=== PATIENT | female | born 1970 | race Caucasian/White ===

== ENCOUNTER 2020-10-15 09:29 | Emergency (ER) | payer SELFPAY ==
[~2020-10-15] VITALS: Ht 170.2 cm; Wt 86.0 kg
[2020-10-15 09:50] VITALS: BP 114/67
[2020-10-15] MEDS ORDERED: sulfa (09:50)
[2020-10-15] MEDS ORDERED: PRED50TA PO (10:47)
--- NOTE | 2020-10-15 10:48 | PHYS DOC ---
Past History Past Medical History: Asthma Past Surgical History: , Other Alcohol Use: None General Adult EDM: Chief Complaint: ALLERGIC REACTION HPI: HPI: 50-year-old female presenting with a rash on her left upper extremity after a patch was placed on her left upper extremity. The rash is itching and without alleviating factors. It is nonradiating and mild to moderate. She has a few hives on her face as well. She denies difficulty breathing or tongue swelling. She denies nuchal rigidity. Review of systems negative for chest pain shortness of breath abdominal pain vomiting fevers chills. All other review of systems negative. ED course: 50-year-old female presenting with left upper extremity hives suggestive of an allergic reaction to the patch on her left arm. She took Benadryl at home. We will give her oral corticosteroids and have her use topical corticosteroids as needed on her arm but not her face. We will give her a note explaining that she is allergic to this arm patch. The patch is a drug test and so they will need to use urine testing instead. The patient has been examined and was not found to have an emergency medical condition. The patient was then discharged home in stable condition to follow up with their primary care physician over the next 1-2 days. They were to return if their symptoms worsened or if they were concerned for any reason. They were also instructed to return to the emergency department if they were unable to get the recommended and appropriate follow-up. [id number] discharge instructions and return precautions were given. Patient's questions were answered to their satisfaction. Patient is comfortable with plan. Allergies: Allergies: Allergies Coded Allergies Type Severity Reaction Last Updated Verified latex Allergy Unknown 10/15/20 Yes Uncoded Allergies Type Severity Reaction Last Updated Verified SULFA Allergy Unknown 10/15/20 Physical Exam: PE: Constitutional: Well developed, well nourished, no acute distress, non-toxic appearance. [] Her breathing is normal. HENT: Normocephalic, atraumatic, bilateral external ears normal, oropharynx mo ist, no oral exudates, nose normal. [] No nuchal rigidity. Eyes: PERRLA, EOMI, conjunctiva normal, no discharge. [] Neck: Normal range of motion, no tenderness, supple, no stridor. [] Cardiovascular:Heart rate regular rhythm, no murmur [] Lungs & Thorax: Bilateral breath sounds clear to auscultation [] no wheezing. Abdomen: Bowel sounds normal, soft, no tenderness, no masses, no pulsatile masses. [] Skin: Warm, dry, patient has hives of the left upper extremity and a few hives on her left cheek. No petechiae. Back: No tenderness, no CVA tenderness. [] Extremities: No tenderness, no cyanosis, no clubbing, ROM intact, no edema. [] Neurologic: Alert and oriented X 3, normal motor function, normal sensory function, no focal deficits noted. [] Psychologic: Affect normal, judgement normal, mood normal. [] Current Patient Data: Vital Signs: Vital Signs Date Time Temp Pulse Resp B/P (MAP) Pulse Ox O2 Delivery O2 Flow Rate FiO2 10/15/20 09:50 96.3 97 16 114/67 (83) 95 Room Air EKG: EKG: [] Radiology/Procedures: Radiology/Procedures: [] Heart Score: Risk Factors: Risk Factors: DM, Current or recent (<one month) smoker, HTN, HLP, family history of CAD, obesity. Risk Scores: Score 0 - 3: 2.5% MACE over next 6 weeks - Discharge Home Score 4 - 6: 20.3% MACE over next 6 weeks - Admit for Clinical Observation Score 7 - 10: 72.7% MACE over next 6 weeks - Early Invasive Strategies Course & Med Decision Making: Course & Med Decision Making Pertinent Labs and Imaging studies reviewed. (See chart for details) [] Dragon Disclaimer: Dragon Disclaimer: This electronic medical record was generated, in whole or in part, using a voice recognition dictation system. Departure Departure: Impression: Primary Impression: Allergic reaction Disposition: 01 DC HOME SELF CARE/HOMELESS Condition: STABLE Referrals: PCP,NO (PCP) Patient Instructions: Drug Allergy, [id number] Additional Instructions: EMERGENCY DEPARTMENT GENERAL DISCHARGE INSTRUCTIONS Follow-up with your primary physician in 1 to 2 days. Return to the emergency department if you have any new or concerning findings. Thank you for coming to [facility] Emergency Department (ED) today and trusting us with you care. We trust that you had a positive experience in our Emergency Department. If you wish to speak to the department management, you may call the Director at [phone]. YOUR FOLLOW UP INSTRUCTIONS ARE FOLLOWS: 1. Do you have a private Doctor? If you do not have a private doctor, please ask for a resource list of physicians or clinics that may be able to assist you with follow up care. 2. If a lab test or culture has been done and does not come back immediately, your results will be reviewed and you will be notified if you need a change in treatment. ADDITIONAL INSTRUCTIONS AND INFORMATION: 1. Your care today has been supervised by a physician who is specially trained in emergency care. Many problems require more than one evaluation for a complete diagnosis and treatment. We recommend that you schedule your follow up appointment as recommended to ensure complete treatment of you illness or injury. If you are unable to obtain follow up care and continue to have a problem, or if your condition worsens, we recommend that you return to the ED. 2. We are not able to safely determine your condition over the phone nor are we able to give sound medical advice over the phone. For these safety reasons, if you call for medical advice we will ask you to come to the ED for further evaluation. 3. If you have any questions regarding these discharge instructions please call the ED at [phone]. SAFETY INFORMATION: In the interest of safety, wellness, and injury prevention; we encourage you to wear your sealbelt, if you smoke; quite smoking, and we encourage family to use a protective helmet for bicycling and other sporting events that present an increased risk for head injury. IF YOUR SYMPTOMS WORSEN OR NEW SYMPTOMS DEVELOP, OR YOU HAVE CONCERNS ABOUT YOUR CONDITION; OR IF YOUR CONDITION WORSENS WHILE YOU ARE WAITING FOR YOUR FOLLOW UP APPOINTMENT; EITHER CONTACT YOUR PRIMARY CARE DOCTOR, THE PHYSICIAN WHOSE NAME AND NUMBER YOU WERE GIVEN, OR RETURN TO THE ED IMMEDIATELY. This condition should be evaluated by your primary care physician and any necessary consulting services for continued management within a few days (1-2) after discharge. Return to the emergency department if you have any new or concerning symptoms including but not limited to fever, chills, nausea, vomiting, intractable pain, any new rashes, chest pain, shortness of breath, uncontrolled bleeding, difficulty breathing, and/or vision loss. Scripts Prednisone (PREDNISONE) 50 Mg Tablet 1 TAB PO DAILY for allergic reaction, #5 TAB You will starting your next dose tomorrow. Prov: ALEE WALLACE MD 10/15/20 ALEE WALLACE MD Oct 15, 2020 10:47
== END 2020-10-15 10:58 | disposition home or self-care (01) ==
LOC: ER 09:29
DX: T78.40XA Allergy, unspecified, initial encounter (principal); L50.9 Urticaria, unspecified; J45.909 Unspecified asthma, uncomplicated; Z91.040 Latex allergy status; X58.XXXA Exposure to other specified factors, initial encounter
CPT/HCPCS: 99283

== ENCOUNTER 2020-11-29 22:23 | Emergency (ER) | payer SELFPAY ==
[~2020-11-29] VITALS: Ht 170.2 cm; Wt 94.3 kg
[~2020-11-29 22:23] MED LIST: PRED50TA PO; sulfa
--- NOTE | 2020-11-29 22:25 | PHYS DOC ---
Past History Past Medical History: Asthma, Diabetes Past Surgical History: , Hysterectomy, Tonsillectomy, Other Alcohol Use: None General Adult HPI: HPI: "..I just tried out this new .... lip shakira.... "Lip Gel" NK ". " [place].. and my lips and mouth felt funny... and lip s sore.. ".. " Looked in the mirror... and they are all swollen..." Patient is a 50 year old female who presents with above hx and complaints of allergic reaction NK lip balm. Patient never used this product before. Patient denies any new foods. Patient denies any new meds. Patient denies any new exposures. Swelling of lips occurred proximal to the application of lip balm. Lips are swollen and have buccal mucosa breakdown. Patient upper airway is stable no stridor. Few scattered wheezes. Oxygenation 100% on room air. Patient denies any travel. No specific ill contacts. Does have past history of GERD, asthma, chronic bronchitis, neuropathy, type 2 diabetes and bronchitis. Patient's had previous surgeries of , tonsil adenoidectomy, hysterectomy, knee surgeries, C-sections, right foot fracture repair. Review of Systems: Review of Systems: Constitutional: Denies fever or chills Eyes: Denies change in visual acuity HENT: Denies nasal congestion or sore throat. Complains of swollen sore lips after application of lip balm Respiratory: Denies cough or shortness of breath Cardiovascular: Denies chest pain or edema GI: Denies abdominal pain, nausea, vomiting, bloody stools or diarrhea : Denies dysuria Musculoskeletal: Denies back pain or joint pain Integument: Denies rash Neurologic: Denies headache, focal weakness or sensory changes Endocrine: Denies polyuria or polydipsia Lymphatic: Denies swollen glands Psychiatric: Denies depression or anxiety Family History: Family History: Noncontributory to presentation Current Medications: Current Meds: See nursing for home meds Allergies: Allergies: Allergies Coded Allergies Type Severity Reaction Last Updated Verified latex Allergy Unknown 10/15/20 Yes Uncoded Allergies Type Severity Reaction Last Updated Verified SULFA Allergy Unknown 10/15/20 Physical Exam: PE: Constitutional: Well developed, well nourished,inacute distress, non-toxic appearance. [] HENT: Normocephalic, atraumatic, bilateral external ears normal, oropharynx moist, no oral exudates, nose normal. Markedly swollen lips and mucosal break down Eyes: PERRLA, EOMI, conjunctiva normal, no discharge. [] Neck: Normal range of motion, no tenderness, supple, no stridor. [] Cardiovascular:Heart rate regular rhythm, no murmur [] Lungs & Thorax: Bilateral breath sounds equal apex with few scattered wheezes auscultation [] Abdomen: Bowel sounds normal, soft, no tenderness, no masses, no pulsatile masses. Old surgery scars Skin: Warm, dry, no erythema, no rash. [] Back: No tenderness, no CVA tenderness. [] Extremities: No tenderness, no cyanosis, no clubbing, ROM intact, no edema. [] Neurologic: Alert and oriented X 3, normal motor function, normal sensory function, no focal deficits noted. [] Psychologic: Affect anxious, judgement normal, mood normal. [] EKG: EKG: [] Radiology/Procedures: Radiology/Procedures: [] Heart Score: C/O Chest Pain: N/A Risk Factors: Risk Factors: DM, Current or recent (<one month) smoker, HTN, HLP, family history of CAD, obesity. Risk Scores: Score 0 - 3: 2.5% MACE over next 6 weeks - Discharge Home Score 4 - 6: 20.3% MACE over next 6 weeks - Admit for Clinical Observation Score 7 - 10: 72.7% MACE over next 6 weeks - Early Invasive Strategies Course & Med Decision Making: Course & Med Decision Making Pertinent Labs and Imaging studies reviewed. (See chart for details) Patient to discontinue use of the NK lip shakira. Patient to continue prednisone 50 mg a day for 5 days. Patient to take Benadryl 25 to 50 mg 4 times a day. Patient take Pepcid 20 mg twice a day. Patient use MDI 2 puffs 4 times a day. Patient follow-up primary care. Patient return if any concerns. Impression: 1. Localized reaction to lip balm NK product [] Jenon Disclaimer: Shira Disclaimer: This electronic medical record was generated, in whole or in part, using a voice recognition dictation system. Departure Departure: Impression: Primary Impression: Allergic Disposition: 01 DC HOME SELF CARE/HOMELESS Admitting Physician: Other Condition: GUARDED Referrals: PCP,NO (PCP) Scripts Famotidine (PEPCID) 20 Mg Tablet 20 MG PO BID for allergic for 10 Days, #20 TAB Prov: CHASTITY CEJA MD 11/29/20 Shira Disclaimer This chart was dictated in whole or in part using Voice Recognition software in a busy, high-work load, and often noisy Emergency Department environment. It may contain unintended and wholly unrecognized errors or omissions. CHASTITY CEJA MD Nov 29, 2020 22:25
[2020-11-29] MEDS ORDERED: FAMOTIDINE 20 MG/2 ML VIAL IVP ONE (22:30)
[2020-11-29] MEDS ORDERED: diphenhydrAMINE 50 MG/ML VIAL IVP ONE (22:30)
[2020-11-29] MEDS ORDERED: methylPREDNISolone SOD SUCC PF 125 MG/2 ML VIAL. IV ONE (22:30)
[2020-11-29] MEDS ORDERED: ALBUTEROL SULFATE 8GM INHALER. INH ONE (22:30)
[2020-11-29] MEDS ORDERED: FAMO-63 PO (23:07)
[2020-11-29] MEDS ORDERED: PRED50TA PO (23:07)
[2020-11-29 23:30] VITALS: BP 108/60
[2020-11-30] MEDS ORDERED: TOPI200T25 PO (01:26)
[2020-11-30] MEDS ORDERED: OMEP40CA45 PO (01:26)
[2020-11-30] MEDS ORDERED: VENL37.5 PO (01:28)
[2020-11-30] MEDS ORDERED: TRAZ-120 PO (01:28)
== END 2020-11-29 23:41 | disposition home or self-care (01) ==
LOC: ER 22:23
DX: K13.0 Diseases of lips (principal); T50.995A Adverse effect of other drugs, medicaments and biological substances, initial encounter; J45.909 Unspecified asthma, uncomplicated; K21.9 Gastro-esophageal reflux disease without esophagitis; E11.40 Type 2 diabetes mellitus with diabetic neuropathy, unspecified; Z91.040 Latex allergy status; Y92.89 Other specified places as the place of occurrence of the external cause
CPT/HCPCS: 94640; 96374; 96375; 99284; J1200; J2930; J3490; 94664

== ENCOUNTER 2021-01-15 12:32 | Emergency (ER) | payer SELFPAY ==
[~2021-01-15] VITALS: Ht 170.2 cm; Wt 94.3 kg
[2021-01-15 12:32] VITALS: BP 95/62
[~2021-01-15 12:32] MED LIST changes: +FAMO-63 PO; +OMEP40CA45 PO; +TOPI200T25 PO; +TRAZ-120 PO; +VENL37.5 PO
[2021-01-15] MEDS: KETOROLAC 30 MG/ML VIAL. IM ONE (13:07)
--- NOTE | 2021-01-15 13:29 | RAD ---
KNEE 3 VIEWS RIGHT Clinical Indication: Reason: pain s/p fall / Comparison: None. Findings: There is no acute fracture or dislocation. There is mild medial compartment and patellofemoral compar tment narrowing. There are tiny marginal osteophytes of all 3 compartments. The patella is in anatomi c position. There is no soft tissue abnormality. There may be small joint effusion. IMPRESSION: No acute fracture. Electronically signed by: Haseeb Perera MD (01/15/2021 1:27 PM) [id number]
[2021-01-15] MEDS ORDERED: HYDR-2155 PO (14:26)
--- NOTE | 2021-01-15 14:26 | PHYS DOC ---
Past History Past Medical History: Asthma, COPD, Diabetes Additional Past Medical Histor: neuropathy Past Surgical History: , Hysterectomy, Tonsillectomy, Other Additional Past Surgical Histo: back, 2 knee surgeries, rt foot fracture Alcohol Use: None General Adult EDM: Chief Complaint: KNEE INJURY HPI: HPI: Patient is a [age] year old [sex] who presents with [] Review of Systems: Review of Systems: Constitutional: Denies fever or chills Eyes: Denies change in visual acuity HENT: Denies nasal congestion or sore throat Respiratory: Denies cough or shortness of breath Cardiovascular: Denies chest pain or edema GI: Denies abdominal pain, nausea, vomiting, bloody stools or diarrhea : Denies dysuria Musculoskeletal: Denies back pain or joint pain Integument: Denies rash Neurologic: Denies headache, focal weakness or sensory changes Endocrine: Denies polyuria or polydipsia Lymphatic: Denies swollen glands Psychiatric: Denies depression or anxiety Current Medications: Current Meds: Current Medications Medications (Trade) Dose Ordered Sig/Adali Start Time Stop Time Status Last Admin Dose Admin Ketorolac Tromethamine (Toradol 30mg Vial) 30 mg 1X ONCE 01/15/21 13:00 01/15/21 13:01 DC 01/15/21 13:07 30 MG Allergies: Allergies: Allergies Coded Allergies Type Severity Reaction Last Updated Verified adhesive tape Allergy Intermediate 11/30/20 Yes latex Allergy Unknown 10/15/20 Yes Uncoded Allergies Type Severity Reaction Last Updated Verified SULFA Allergy Unknown 10/15/20 Physical Exam: PE: Constitutional: Well developed, well nourished, no acute distress, non-toxic appearance. [] HENT: Normocephalic, atraumatic, bilateral external ears normal, oropharynx moist, no oral exudates, nose normal. [] Eyes: PERRLA, EOMI, conjunctiva normal, no discharge. [] Neck: Normal range of motion, no tenderness, supple, no stridor. [] Cardiovascular:Heart rate regular rhythm, no murmur [] Lungs & Thorax: Bilateral breath sounds clear to auscultation [] Abdomen: Bowel sounds normal, soft, no tenderness, no masses, no pulsatile masses. [] Skin: Warm, dry, no erythema, no rash. [] Back: No tenderness, no CVA tenderness. [] Extremities: No tenderness, no cyanosis, no clubbing, ROM intact, no edema. [] Neurologic: Alert and oriented X 3, normal motor function, normal sensory function, no focal deficits noted. [] Psychologic: Affect normal, judgement normal, mood normal. [] Current Patient Data: Vital Signs: Vital Signs Date Time Temp Pulse Resp B/P (MAP) Pulse Ox O2 Delivery O2 Flow Rate FiO2 01/15/21 12:32 97.9 90 18 95/62 (73) 100 Room Air EKG: EKG: [] Radiology/Procedures: Radiology/Procedures: PROCEDURE: KNEE RIGHT 3V KNEE 3 VIEWS RIGHT Clinical Indication: Reason: pain s/p fall / Comparison: None. Findings: There is no acute fracture or dislocation. There is mild medial compartment and patellofemoral compartment narrowing. There are tiny marginal osteophytes of all 3 compartments. The patella is in anatomic position. There is no soft tissue abnormality. There may be small joint effusion. IMPRESSION: No acute fracture. Electronically signed by: Haseeb Perera MD (01/15/2021 1:27 PM) [id number] Heart Score: Risk Factors: Risk Factors: DM, Current or recent (<one month) smoker, HTN, HLP, family history of CAD, obesity. Risk Scores: Score 0 - 3: 2.5% MACE over next 6 weeks - Discharge Home Score 4 - 6: 20.3% MACE over next 6 weeks - Admit for Clinical Observation Score 7 - 10: 72.7% MACE over next 6 weeks - Early Invasive Strategies Course & Med Decision Making: Course & Med Decision Making Pertinent Labs and Imaging studies reviewed. (See chart for details) [] Dragpilar Disclaimer: Shira Disclaimer: This electronic medical record was generated, in whole or in part, using a voice recognition dictation system. Departure Departure: Impression: Primary Impression: Knee pain, acute Qualified Codes: M25.561 - Pain in right knee Disposition: HOME / SELF CARE / HOMELESS Condition: STABLE Referrals: PCPRORO (PCP) PRINCE VALDIVIA MD Patient Instructions: Crutch Use, [id number], Knee Pain, [id number], Knee Wraps (Elastic Bandage) and RICE Additional Instructions: ICE area of discomfort 20 min on then leave off next 20 mins. May also use over the counter Ibuprofen as needed. Scripts Hydrocodone Bit/Acetaminophen (HYDROCODONE-APAP 5-325 ) 1 Each Tablet 0.5-1 TAB PO PRN Q6HRS PRN for PAIN, #10 TAB 0 Refills Prov: SVETLANA OCAMPO DO 01/15/21 SVETLANA OCAMPO DO January 15, 2021 14:26
== END 2021-01-15 14:38 | disposition home or self-care (01) ==
LOC: ER 12:32
DX: M25.561 Pain in right knee (principal); J44.9 Chronic obstructive pulmonary disease, unspecified; E11.9 Type 2 diabetes mellitus without complications; Z91.040 Latex allergy status; Z88.8 Allergy status to other drugs, medicaments and biological substances
CPT/HCPCS: 73562; 96372; 99283; J1885